=== PATIENT | female | born 1930 | race Caucasian/White ===

== ENCOUNTER 2017-01-09 05:06 | Emergency (ER) | payer OTHER ==
[~2017-01-09] VITALS: Ht 149.9 cm; Wt 65.8 kg
[2017-01-09 05:06] VITALS: BP 158/73; PULSE 67; RESP 15; TEMP 97.2; O2SAT 96
[~2017-01-09 05:06] MED LIST: ACET-1010 PO; ALBU8.5H8 INH; ALEN10TA6 PO; ARIP5TAB10 PO; BISA5TAB10 PO; BUPR100T13 PO; CLOP75TA2 PO; CYAN100067 PO; DOCU-144 PO; DONE10TA44 PO; GUAI600T PO; LIP10 PO; MEMA10TA12 PO; MULT-1117 PO; NIFE-2 PO; ONDA4TAB5 PO; POLY17PO4 PO; TRAZ-123 PO; VENL75CA PO
--- NOTE | 2017-01-09 05:06 | NUR ---
ER at bedside examining patient.
--- NOTE | 2017-01-09 05:06 | NUR ---
Placed in room 02 . Placed on qual field manager, blood pressure machine and pulse oximeter. To gown for exam. Side rails up. Report given to ROBERTO Middleton.
--- NOTE | 2017-01-09 05:06 | NUR ---
Pt had a mechanical fall while ambulating to the bathroom. Pt reports R knee and shoulder pain 04/20. Pt has a hematome on the R side of the forehead with some small abrasions of the nose. Denies KO. AAOX4. Will continue to monitor. No other injuries or complaints mentioned/noted. No distress noted.
[2017-01-09] MEDS ORDERED: BACITRACIN 1 GM OINT TP ONE (05:15)
[2017-01-09] MEDS ORDERED: IBUPROFEN 600 MG TABLET PO ONE (05:15)
--- NOTE | 2017-01-09 05:24 | NUR ---
Patient medication records indicate patient takes MD Cyrus notified and now aware.
[2017-01-09 05:57] VITALS: BP 158/73; PULSE 67; RESP 15; TEMP 97.2; O2SAT 96
--- NOTE | 2017-01-09 05:57 | NUR ---
Called Allan Templeton. Spoke to Lauren and gave report.
--- NOTE | 2017-01-09 05:57 | NUR ---
Patient given written and verbal discharge instructions and verbalizes understanding. ER MD discussed with patient the results and treatment provided. Patient in stable condition. ID arm band removed. Rx of ibuprofen given. Patient educated on pain management and to follow up with PMD. Pain Scale 2/10. Opportunity for questions provided and answered.
== END 2017-01-09 05:57 | disposition home or self-care (01) ==
LOC: SED 05:06
DX: S00.83XA Contusion of other part of head, initial encounter (principal); S80.01XA Contusion of right knee, initial encounter; J45.909 Unspecified asthma, uncomplicated; F03.90 Unspecified dementia, unspecified severity, without behavioral disturbance, psychotic disturbance, mood disturbance, and anxiety; E11.9 Type 2 diabetes mellitus without complications; Z88.5 Allergy status to narcotic agent; Z91.011 Allergy to milk products; Z96.651 Presence of right artificial knee joint; Z88.1 Allergy status to other antibiotic agents; W01.0XXA Fall on same level from slipping, tripping and stumbling without subsequent striking against object, initial encounter; Y93.89 Activity, other specified; Y99.8 Other external cause status; Y92.89 Other specified places as the place of occurrence of the external cause
CPT/HCPCS: 73560-TC; 99284

== ENCOUNTER 2017-07-25 17:45 | Inpatient (IN) | payer OTHER ==
[~2017-07-25] VITALS: Ht 142.2 cm; Wt 56.7 kg
[2017-07-25 17:45] VITALS: BP_SYST 129
[~2017-07-25 17:45] MED LIST changes: -NIFE-2 PO
[2017-07-25] MEDS ORDERED: NS 500 ML IV ONE (18:15)
[2017-07-25 18:36] LABS: BASOPHILS % (AUTO) 0.1 % (0.0-2.0); EOSINOPHILS # (AUTO) 0.1 K/uL (0.0-0.4); EOSINOPHILS % (AUTO) 1.8 % (0.0-4.0); HEMOGLOBIN 13.6 g/dL (12.0-16.0); LYMPHOCYTES # (AUTO) 1.1 K/uL (1.0-5.5); LYMPHOCYTES % (AUTO) 20.4 % (20.5-51.5); MEAN CORPUSCULAR HEMOGLOBIN 29 pg (27-31); MEAN CORPUSCULAR HGB CONC 33 % (32-36); MEAN CORPUSCULAR VOLUME 86 fL (79.0-98.0); MONOCYTES # (AUTO) 0.7 K/uL (0.0-1.0); MONOCYTES % (AUTO) 13.1 % (1.7-9.3); NEUTROPHILS # (AUTO) 3.4 K/uL (1.8-7.7); NEUTROPHILS % (AUTO) 64.6 % (40.0-70.0); PLATELET COUNT (AUTO) 200 K/uL (130-430); RED BLOOD CELL COUNT(AUTO) 4.78 MIL/uL (4.2-6.2); RED CELL DISTRIBUTION WIDTH 13.8 % (9.0-15.0); WHITE BLOOD COUNT (AUTO) 5.3 K/uL (4.8-10.8)
[2017-07-25 18:39] LABS: PROTHROMBIN TIME 10.9 SECS (9.5-12.5)
[2017-07-25 18:48] LABS: ANION GAP 10 (5-15); CALCIUM 8.8 mg/dL (8.4-11.0); CHLORIDE 98 mmol/L (98-107); CREATININE 1.45 mg/dL (0.55-1.30); POTASSIUM 4.4 mmol/L (3.5-5.1); SODIUM SERUM 131 mmol/L (136-145); UREA NITROGEN, BLOOD 12 mg/dL (8-21)
[2017-07-25 18:51] LABS: GLUCOSE 417 mg/dL (70-99)
[2017-07-25 18:53] LABS: ALANINE AMINOTRANSFERASE 29 U/L (12-78); ASPARTATE AMINOTRANSFERASE 21 U/L (10-37); TOTAL BILIRUBIN 0.6 mg/dL (0.0-1.0)
[2017-07-25 19:02] LABS: BILIRUBIN,URINE NEGATIVE (NEGATIVE); BLOOD, URINE NEGATIVE (NEGATIVE); CLARITY/URINE SL HAZY (CLEAR); COLOR,URINE YELLOW (YELLOW); GLUCOSE,URINE 3+ (NEGATIVE); KETONES,URINE TRACE (NEGATIVE); LEUKOCYTE ESTERASE ,URINE NEGATIVE (NEGATIVE); NITRITE, URINE NEGATIVE (NEGATIVE); PROTEIN URINE NEGATIVE (NEGATIVE)
[2017-07-25 19:24] LABS: BACTERIA,URINE FEW /HPF (None Seen); RBC,URINE NONE SEEN /HPF (0-3)
[2017-07-25 19:25] LABS: MUCUS,URINE None Seen /LPF (None Seen)
[2017-07-25] MEDS ORDERED: MEMA28CA PO (19:53)
[2017-07-25] MEDS ORDERED: LEVOFLOXACIN 500 MG/D5W 100 ML IV ONE (20:15)
[2017-07-25] MEDS ORDERED: INSULIN REGULAR, HUMAN 10 UNITS/0.1 ML INJ IVP ONE (20:15)
[2017-07-25] MEDS ORDERED: LEVOFLOXACIN 500 MG/D5W 100 ML IV SCH (20:30)
[2017-07-25 20:38] LABS: ACETAMINOPHEN < 1 ug/mL (1-30)
[2017-07-25 21:14] VITALS: BP_SYST 110
[2017-07-25] MEDS: NACL 0.9% 1,000 ML IV SCH (22:29)
[2017-07-25 23:51] VITALS: BP_SYST 108
[2017-07-26 04:59] VITALS: BP_SYST 104
[2017-07-26] MEDS: INSULIN REGULAR, HUMAN 100 UNITS/ML, 10 ML VIAL (novoLIN R) SUBCUT PRN ×2 (06:32→13:01)
[2017-07-26] MEDS: NACL 0.9% 1,000 ML IV SCH (06:42)
[2017-07-26 07:51] LABS: BASOPHILS % (AUTO) 0.2 % (0.0-2.0); EOSINOPHILS # (AUTO) 0.1 K/uL (0.0-0.4); EOSINOPHILS % (AUTO) 2.2 % (0.0-4.0); HEMATOCRIT 35.8 % (36-48); HEMOGLOBIN 11.6 g/dL (12.0-16.0); LYMPHOCYTES # (AUTO) 1.2 K/uL (1.0-5.5); LYMPHOCYTES % (AUTO) 31.1 % (20.5-51.5); MEAN CORPUSCULAR HEMOGLOBIN 28 pg (27-31); MEAN CORPUSCULAR HGB CONC 33 % (32-36); MEAN CORPUSCULAR VOLUME 87 fL (79.0-98.0); MONOCYTES # (AUTO) 0.6 K/uL (0.0-1.0); NEUTROPHILS # (AUTO) 1.9 K/uL (1.8-7.7); NEUTROPHILS % (AUTO) 51.5 % (40.0-70.0); PLATELET COUNT (AUTO) 161 K/uL (130-430); RED BLOOD CELL COUNT(AUTO) 4.09 MIL/uL (4.2-6.2); RED CELL DISTRIBUTION WIDTH 13.6 % (9.0-15.0); WHITE BLOOD COUNT (AUTO) 3.8 K/uL (4.8-10.8)
[2017-07-26 08:21] LABS: ALANINE AMINOTRANSFERASE 22 U/L (12-78); ALBUMIN 2.9 g/dL (3.4-4.8); ANION GAP 11 (5-15); ASPARTATE AMINOTRANSFERASE 18 U/L (10-37); CALCIUM 7.7 mg/dL (8.4-11.0); CHLORIDE 105 mmol/L (98-107); CREATININE 1.07 mg/dL (0.55-1.30); GLUCOSE 218 mg/dL (70-99); POTASSIUM 4.2 mmol/L (3.5-5.1); SODIUM SERUM 138 mmol/L (136-145); TOTAL BILIRUBIN 0.4 mg/dL (0.0-1.0); UREA NITROGEN, BLOOD 9 mg/dL (8-21)
[2017-07-26 08:29] LABS: BARBITURATE, URINE NEGATIVE (NEG <=200); BENZODIAZEPINE, URINE NEGATIVE (NEG <=150); CANNABINOID, URINE NEGATIVE (NEG <=50); COCAINE, URINE NEGATIVE (NEG <=150); METHAMPHETAMINES SCREEN,URINE NEGATIVE (NEG <=500); OPIATE, URINE NEGATIVE (NEG <=100); PHENCYCLIDINE SCREEN,URINE NEGATIVE (NEG <=25); UR TRICYCLIC ANTIDEPRESSANTS NEGATIVE (NEG <=300); URINE AMPHETAMINE NEGATIVE (NEG <=500); URINE METHADONE NEGATIVE (NEG <=200); URINE OXYCODONE SCREEN NEGATIVE (NEG <=100); URINE PROPOXYPHENE SCREEN NEGATIVE (NEG <=300)
[2017-07-26 08:30] VITALS: BP_SYST 109
[2017-07-26] MEDS ORDERED: LISINOPRIL 10 MG TABLET (PRINIVIL) PO SCH (09:00)
[2017-07-26 11:53] VITALS: BP_SYST 112
[2017-07-26 14:23] VITALS: BP_SYST 112
[2017-07-26] MEDS ORDERED: INSULIN REGULAR, HUMAN 100 UNITS/ML, 10 ML VIAL (novoLIN R) SUBCUT PRN (14:45)
[2017-07-26 16:03] VITALS: BP_SYST 106
== END 2017-07-26 15:50 | DRG 682 ==
LOC: SED 17:45 → SMU 20:39
DX: N17.9 Acute kidney failure, unspecified (principal); G93.41 Metabolic encephalopathy; N39.0 Urinary tract infection, site not specified; E11.65 Type 2 diabetes mellitus with hyperglycemia; G30.9 Alzheimer's disease, unspecified; F02.80 Dementia in other diseases classified elsewhere, unspecified severity, without behavioral disturbance, psychotic disturbance, mood disturbance, and anxiety; Z66 Do not resuscitate; W19.XXXA Unspecified fall, initial encounter; E78.00 Pure hypercholesterolemia, unspecified; I10 Essential (primary) hypertension; F32.9 Major depressive disorder, single episode, unspecified; R14.0 Abdominal distension (gaseous); E88.1 Lipodystrophy, not elsewhere classified; Z88.5 Allergy status to narcotic agent; Z88.8 Allergy status to other drugs, medicaments and biological substances; Z79.4 Long term (current) use of insulin
CPT/HCPCS: 36415; 70450-TC; 71010; 72125-TC; 80053; 80307; 81000-TC; 82962; 83036; 83605; 84484; 85025; 85610-TC; 85730-TC; 87040-TC; 87081; 87086; 93005; 96361; 96365; 96375; 99285; G0480; G0481; J1815; J1956; J7030; J7040

== ENCOUNTER 2018-01-23 17:39 | Emergency (ER) | payer OTHER ==
[~2018-01-23] VITALS: Ht 152.4 cm; Wt 52.2 kg
[~2018-01-23 17:39] MED LIST changes: -MEMA10TA12 PO; +MEMA28CA PO
[2018-01-23 17:42] VITALS: BP_SYST 122
--- NOTE | 2018-01-23 17:42 | NUR ---
Patient to ER bed 02 to gown for evaluation. Side rails up. Report given to ROBERTO Gaona
--- NOTE | 2018-01-23 17:43 | NUR ---
Pt AAOx4 BIB BLS s/p mechanical ground level fall at [facility] x 3 days ago. Per EMS, x-ray was done and showed hip fracture. PMD Ramirez recommended for pt to go to ER. Pt denies pain omar. +CMS to bilateral legs. No pain upon palpation to bilateral hips. Pt breathing even and unlabored. No other injuries/complaints per pt/noted. Will continue to monitor.
--- NOTE | 2018-01-23 17:47 | NUR ---
ER Dr. Garcia at bedside examining patient.
--- NOTE | 2018-01-23 18:00 | NUR ---
Per staff at [facility], no radiology report is available for analysis. WOJCIECH Medrano got a verbal report from [facility] that there was an abnormality to R hip and recommended CT to r/o fracture. [facility] [place] [facility].
[2018-01-23 18:55] LABS: BASOPHILS % (AUTO) 0.5 % (0.0-2.0); EOSINOPHILS % (AUTO) 0.8 % (0.0-4.0); HEMATOCRIT 38.4 % (36-48); HEMOGLOBIN 12.6 g/dL (12.0-16.0); LYMPHOCYTES # (AUTO) 0.8 K/uL (1.0-5.5); LYMPHOCYTES % (AUTO) 25.6 % (20.5-51.5); MEAN CORPUSCULAR HEMOGLOBIN 29 pg (27-31); MEAN CORPUSCULAR HGB CONC 33 % (32-36); MEAN CORPUSCULAR VOLUME 88 fL (79.0-98.0); MONOCYTES # (AUTO) 0.4 K/uL (0.0-1.0); MONOCYTES % (AUTO) 14.9 % (1.7-9.3); NEUTROPHILS # (AUTO) 1.8 K/uL (1.8-7.7); NEUTROPHILS % (AUTO) 58.2 % (40.0-70.0); PLATELET COUNT (AUTO) 148 K/uL (130-430); RED BLOOD CELL COUNT(AUTO) 4.38 MIL/uL (4.2-6.2); RED CELL DISTRIBUTION WIDTH 14.4 % (9.0-15.0)
--- NOTE | 2018-01-23 18:59 | NUR ---
Pt assisted with bedpan. Pt tolerated well.
[2018-01-23 19:10] LABS: ANION GAP 8 (5-15); CALCIUM 8.8 mg/dL (8.4-11.0); CHLORIDE 96 mmol/L (98-107); CREATININE 1.26 mg/dL (0.55-1.30); GLUCOSE 221 mg/dL (70-99); POTASSIUM 4.2 mmol/L (3.5-5.1); SODIUM SERUM 129 mmol/L (136-145); UREA NITROGEN, BLOOD 15 mg/dL (8-21)
[2018-01-23 19:12] LABS: PROTHROMBIN TIME 10.3 SECS (9.5-12.5)
[2018-01-23 19:15] LABS: ALANINE AMINOTRANSFERASE 45 U/L (12-78); ALBUMIN 3.8 g/dL (3.4-4.8); ASPARTATE AMINOTRANSFERASE 89 U/L (10-37); TOTAL BILIRUBIN 0.4 mg/dL (0.0-1.0)
--- NOTE | 2018-01-23 19:16 | NUR ---
Radiology at bedside
--- NOTE | 2018-01-23 19:19 | NUR ---
Patient sitting in bed, daughter at bedside. No acute distress noted. Patient awake and alert, vital signs stable. Will continue to monitor.
--- NOTE | 2018-01-23 19:28 | NUR ---
# 22 gauge angiocath placed to L FA. Use of asceptic technique. Opsite placed over site. Blood return noted. Flushed with 10 cc of normal saline. No evidence of infiltration noted. Patient tolerated well.
[2018-01-23] MEDS ORDERED: LOPE2CAP PO (19:42)
[2018-01-23] MEDS ORDERED: TUM500 PO (19:42)
[2018-01-23] MEDS ORDERED: ALEN10TA6 PO (19:42)
[2018-01-23] MEDS ORDERED: GUAI100S14 PO (19:42)
[2018-01-23] MEDS ORDERED: SITA100T7 PO (19:42)
[2018-01-23] MEDS ORDERED: VITD2000 PO (19:42)
[2018-01-23] MEDS ORDERED: ACET167L15 PO (19:42)
[2018-01-23] MEDS ORDERED: DOCU-144 PO (19:42)
[2018-01-23] MEDS ORDERED: ARTT OP (19:42)
[2018-01-23] MEDS ORDERED: GLIP-201 PO (19:42)
--- NOTE | 2018-01-23 19:42 | NUR ---
Care endorsed to Blanca MEJIA
--- NOTE | 2018-01-23 19:42 | NUR ---
Medication reconciliation completed with information provided by Allan Templeton. Any prior medication reconciliation on file was reviewed and corrected.
[2018-01-23 20:43] VITALS: BP_SYST 122
--- NOTE | 2018-01-23 20:43 | NUR ---
Patient given written and verbal discharge instructions and verbalizes understanding. ER MD SAEED discussed with patient the results and treatment provided. Patient in stable condition. ID arm band removed. IV catheter removed intact and dressing applied, no active bleeding. NO Rx given. Patient educated on pain management and to follow up with PMD. Pain Scale 0/10. Opportunity for questions provided and answered. Medication side effect fact sheet provided.
== END 2018-01-23 20:43 | disposition home or self-care (01) ==
LOC: SED 17:39
DX: S70.02XA Contusion of left hip, initial encounter (principal); S70.01XA Contusion of right hip, initial encounter; E11.9 Type 2 diabetes mellitus without complications; J45.909 Unspecified asthma, uncomplicated; F03.90 Unspecified dementia, unspecified severity, without behavioral disturbance, psychotic disturbance, mood disturbance, and anxiety; Z79.899 Other long term (current) drug therapy; Z88.5 Allergy status to narcotic agent; Z88.6 Allergy status to analgesic agent; Z88.1 Allergy status to other antibiotic agents; Z91.011 Allergy to milk products; W18.30XA Fall on same level, unspecified, initial encounter; Y93.89 Activity, other specified; Y92.830 Public park as the place of occurrence of the external cause; Y99.8 Other external cause status
CPT/HCPCS: 36415; 73521; 80053; 84484; 85025; 85610-TC; 93005; 99285

== ENCOUNTER 2018-11-03 20:56 | Emergency (ER) | payer OTHER ==
[~2018-11-03] VITALS: Ht 152.4 cm; Wt 54.4 kg
[~2018-11-03 20:56] MED LIST changes: -ACET-1010 PO; +ACET-2634 PO; +ACET167L15 PO; +ARTT OP; +CYAN100010 PO; -CYAN100067 PO; +GLIP-201 PO; +GUAI100S14 PO; -GUAI600T PO; +GUAI600T45 PO; +LOPE2CAP PO; +SITA100T11 PO; +TUM500 PO; +VITD2000 PO
[2018-11-03 21:00] VITALS: BP_SYST 141
[2018-11-03] MEDS ORDERED: TRAM1TAB33 PO (21:18)
[2018-11-03] MEDS ORDERED: GUAI100S14 PO (21:18)
[2018-11-03] MEDS ORDERED: CARB1TAB10 PO (21:18)
[2018-11-03 22:15] LABS: ANION GAP 8 (5-15); CALCIUM 8.1 mg/dL (8.4-11.0); CHLORIDE 101 mmol/L (98-107); CREATININE 1.17 mg/dL (0.55-1.30); GLUCOSE 245 mg/dL (70-99); POTASSIUM 4.7 mmol/L (3.5-5.1); SODIUM SERUM 136 mmol/L (136-145); UREA NITROGEN, BLOOD 13 mg/dL (8-21)
[2018-11-03 22:30] LABS: ALANINE AMINOTRANSFERASE 21 U/L (12-78); ALBUMIN 3.4 g/dL (3.4-4.8); ASPARTATE AMINOTRANSFERASE 21 U/L (10-37); LIPASE 116 U/L (73-393); THYROID STIMULATING HORMONE 3.08 uIu/mL (0.36-3.74); TOTAL BILIRUBIN 0.7 mg/dL (0.0-1.0)
[2018-11-03 22:36] LABS: BASOPHILS % (AUTO) 0.2 % (0.0-2.0); EOSINOPHILS # (AUTO) 0.1 K/uL (0.0-0.4); EOSINOPHILS % (AUTO) 1.4 % (0.0-4.0); HEMATOCRIT 41.5 % (36-48); HEMOGLOBIN 13.8 g/dL (12.0-16.0); LYMPHOCYTES # (AUTO) 0.2 K/uL (1.0-5.5); LYMPHOCYTES % (AUTO) 3.1 % (20.5-51.5); MEAN CORPUSCULAR HEMOGLOBIN 29 pg (27-31); MEAN CORPUSCULAR HGB CONC 33 % (32-36); MEAN CORPUSCULAR VOLUME 86 fL (79.0-98.0); MONOCYTES # (AUTO) 0.2 K/uL (0.0-1.0); MONOCYTES % (AUTO) 3.7 % (1.7-9.3); NEUTROPHILS % (AUTO) 91.6 % (40.0-70.0); PLATELET COUNT (AUTO) 176 K/uL (130-430); RED CELL DISTRIBUTION WIDTH 13.6 % (9.0-15.0); WHITE BLOOD COUNT (AUTO) 6.5 K/uL (4.8-10.8)
[2018-11-03 23:16] LABS: BILIRUBIN,URINE NEGATIVE (NEGATIVE); CLARITY/URINE CLEAR (CLEAR); COLOR,URINE YELLOW (YELLOW); GLUCOSE,URINE 2+ (NEGATIVE); KETONES,URINE TRACE (NEGATIVE); LEUKOCYTE ESTERASE ,URINE NEGATIVE (NEGATIVE); NITRITE, URINE NEGATIVE (NEGATIVE); PH,URINE 7.5 (5.0-8.0); PROTEIN URINE NEGATIVE (NEGATIVE)
[2018-11-03 23:25] LABS: BLOOD, URINE TRACE (NEGATIVE)
[2018-11-03 23:46] LABS: BACTERIA,URINE FEW /HPF (None Seen); WBC,URINE 0-3 /HPF (0-3)
[2018-11-04 00:36] VITALS: BP_SYST 141
== END 2018-11-04 00:30 | disposition home or self-care (01) ==
LOC: SED 20:56
DX: R53.1 Weakness (principal); J45.909 Unspecified asthma, uncomplicated; F03.90 Unspecified dementia, unspecified severity, without behavioral disturbance, psychotic disturbance, mood disturbance, and anxiety; F41.9 Anxiety disorder, unspecified; R03.0 Elevated blood-pressure reading, without diagnosis of hypertension; Z88.1 Allergy status to other antibiotic agents; Z88.5 Allergy status to narcotic agent; Z91.018 Allergy to other foods; Z88.8 Allergy status to other drugs, medicaments and biological substances; Z79.899 Other long term (current) drug therapy
CPT/HCPCS: 36415; 71045; 80053; 81000-TC; 83690-TC; 84443-TC; 84484; 85025; 93005; 99284

== ENCOUNTER 2018-12-05 21:56 | Inpatient (IN) | payer OTHER ==
[~2018-12-05] VITALS: Ht 142.2 cm; Wt 58.5 kg
[~2018-12-05 21:56] MED LIST changes: -ACET-2634 PO; +CARB1TAB10 PO; -DONE10TA44 PO; -GUAI600T45 PO; -MULT-1117 PO; -ONDA4TAB5 PO; +TRAM-350 PO; -TRAZ-123 PO; +TRAZ-218 PO
[2018-12-05 22:00] VITALS: BP_SYST 155
[2018-12-05] MEDS ORDERED: NACL 0.9% 1,000 ML IV ONE (22:02)
[2018-12-05] MEDS ORDERED: MORPHINE 4 MG/ML INJ. SYRINGE IVP ONE (22:15)
[2018-12-05] MEDS ORDERED: ONDANSETRON HCL 4 MG/2 ML VIAL IVP ONE (22:15)
[2018-12-05 22:50] LABS: EOSINOPHILS # (AUTO) 0.1 K/uL (0.0-0.4); HEMOGLOBIN 12.3 g/dL (12.0-16.0); RED CELL DISTRIBUTION WIDTH 13.5 % (9.0-15.0)
[2018-12-05 22:56] LABS: BASOPHILS % (AUTO) 0.5 % (0.0-2.0); HEMATOCRIT 37.9 % (36-48); LYMPHOCYTES # (AUTO) 0.7 K/uL (1.0-5.5); LYMPHOCYTES % (AUTO) 14.4 % (20.5-51.5); MEAN CORPUSCULAR HEMOGLOBIN 29 pg (27-31); MEAN CORPUSCULAR HGB CONC 32 % (32-36); MEAN CORPUSCULAR VOLUME 89 fL (79.0-98.0); MONOCYTES # (AUTO) 0.4 K/uL (0.0-1.0); MONOCYTES % (AUTO) 8.1 % (1.7-9.3); NEUTROPHILS # (AUTO) 3.6 K/uL (1.8-7.7); PLATELET COUNT (AUTO) 214 K/uL (130-430); RED BLOOD CELL COUNT(AUTO) 4.24 MIL/uL (4.2-6.2); WHITE BLOOD COUNT (AUTO) 4.8 K/uL (4.8-10.8)
[2018-12-05] MEDS ORDERED: PROC5TAB12 PO (22:57)
[2018-12-05] MEDS ORDERED: ACET-73 PO (22:57)
[2018-12-05 23:01] LABS: PROTHROMBIN TIME 10.6 SECS (9.5-12.5)
[2018-12-05 23:10] LABS: ALANINE AMINOTRANSFERASE 15 U/L (12-78); ALBUMIN 3.7 g/dL (3.4-4.8); AMYLASE 51 U/L (0-100); ANION GAP 8 (5-15); ASPARTATE AMINOTRANSFERASE 19 U/L (10-37); CALCIUM 8.6 mg/dL (8.4-11.0); CHLORIDE 101 mmol/L (98-107); CREATININE 1.37 mg/dL (0.55-1.30); GLUCOSE 267 mg/dL (70-99); LIPASE 139 U/L (73-393); POTASSIUM 4.5 mmol/L (3.5-5.1); SODIUM SERUM 136 mmol/L (136-145); TOTAL BILIRUBIN 0.6 mg/dL (0.0-1.0); UREA NITROGEN, BLOOD 12 mg/dL (8-21)
[2018-12-05 23:30] LABS: BILIRUBIN,URINE NEGATIVE (NEGATIVE); BLOOD, URINE NEGATIVE (NEGATIVE); CLARITY/URINE CLEAR (CLEAR); COLOR,URINE YELLOW (YELLOW); GLUCOSE,URINE TRACE (NEGATIVE); KETONES,URINE TRACE (NEGATIVE); LEUKOCYTE ESTERASE ,URINE NEGATIVE (NEGATIVE); NITRITE, URINE NEGATIVE (NEGATIVE); PH,URINE 6.5 (5.0-8.0); PROTEIN URINE NEGATIVE (NEGATIVE)
[2018-12-05] MEDS ORDERED: MORPHINE 4 MG/ML INJ. SYRINGE IVP PRN (23:45)
[2018-12-06] VITALS (7 sets, daily range): BP systolic 120–189
[2018-12-06] MEDS ORDERED: LOPERAMIDE HCL 2 MG CAPSULE PO PRN (05:15)
[2018-12-06] MEDS ORDERED: hydrALAZINE HCL 25 MG TABLET PO PRN (05:30)
[2018-12-06] MEDS ORDERED: ONDANSETRON HCL 4 MG/2 ML VIAL IVP PRN (05:30)
[2018-12-06] MEDS ORDERED: ALBUTEROL SULFATE 0.083% 2.5 MG/3 ML VIAL.NEB INH PRN (05:30)
[2018-12-06] MEDS ORDERED: MORPHINE 4 MG/ML INJ. SYRINGE IVP PRN (05:30)
[2018-12-06] MEDS: INSULIN REGULAR, HUMAN 100 UNITS/ML, 10 ML VIAL (humuLIN R) SUBCUT PRN ×3 (06:08→17:35)
[2018-12-06 07:05] LABS: BASOPHILS % (AUTO) 0.4 % (0.0-2.0); EOSINOPHILS # (AUTO) 0.1 K/uL (0.0-0.4); EOSINOPHILS % (AUTO) 1.4 % (0.0-4.0); HEMATOCRIT 39.8 % (36-48); HEMOGLOBIN 12.7 g/dL (12.0-16.0); LYMPHOCYTES # (AUTO) 0.9 K/uL (1.0-5.5); LYMPHOCYTES % (AUTO) 13.6 % (20.5-51.5); MEAN CORPUSCULAR HEMOGLOBIN 29 pg (27-31); MEAN CORPUSCULAR HGB CONC 32 % (32-36); MEAN CORPUSCULAR VOLUME 90 fL (79.0-98.0); MONOCYTES # (AUTO) 0.6 K/uL (0.0-1.0); MONOCYTES % (AUTO) 9.2 % (1.7-9.3); NEUTROPHILS # (AUTO) 4.8 K/uL (1.8-7.7); NEUTROPHILS % (AUTO) 75.4 % (40.0-70.0); PLATELET COUNT (AUTO) 177 K/uL (130-430); RED BLOOD CELL COUNT(AUTO) 4.42 MIL/uL (4.2-6.2); RED CELL DISTRIBUTION WIDTH 13.9 % (9.0-15.0); WHITE BLOOD COUNT (AUTO) 6.4 K/uL (4.8-10.8)
[2018-12-06 07:08] LABS: ANION GAP 11 (5-15); CALCIUM 8.5 mg/dL (8.4-11.0); CHLORIDE 104 mmol/L (98-107); CREATININE 1.18 mg/dL (0.55-1.30); GLUCOSE 230 mg/dL (70-99); POTASSIUM 4.8 mmol/L (3.5-5.1); SODIUM SERUM 139 mmol/L (136-145); UREA NITROGEN, BLOOD 11 mg/dL (8-21)
[2018-12-06 07:19] LABS: ALANINE AMINOTRANSFERASE 16 U/L (12-78); ALBUMIN 3.5 g/dL (3.4-4.8); ASPARTATE AMINOTRANSFERASE 20 U/L (10-37); TOTAL BILIRUBIN 0.5 mg/dL (0.0-1.0)
[2018-12-06] MEDS: Effexor XR 37.5 MG PO SCH (08:49)
[2018-12-06] MEDS: PANTOPRAZOLE GRANULES PACKET 40 MG GT SCH (08:49)
[2018-12-06] MEDS: buPROPion HCL 100 MG TABLET PO SCH (08:49)
[2018-12-06] MEDS: POLYETHYLENE GLYCOL 3350, 17 GM/ POWD.PACK PO SCH (08:49)
[2018-12-06] MEDS: CYANOCOBALAMIN 1000 mCg TABLET PO SCH (08:49)
[2018-12-06] MEDS: cloNIDine HCL 0.2 MG TABLET PO PRN (08:50)
[2018-12-06] MEDS: CARBIDOPA/LEVODOPA 25/100 MG TABLET PO SCH ×3 (08:50→21:08)
[2018-12-06] MEDS ORDERED: glipiZIDE XL 5 MG TAB ( GLUCOTROL XL) PO SCH (09:00)
[2018-12-06] MEDS ORDERED: CLOPIDOGREL BISULFATE 75 MG TABLET PO SCH (09:00)
[2018-12-06] MEDS: MORPHINE 4 MG/ML INJ. SYRINGE IVP PRN ×2 (10:04→17:40)
[2018-12-06] MEDS: ARIPiprazole 5 MG TAB PO SCH (11:49)
[2018-12-06] MEDS ORDERED: traZODone HCL 50 MG TABLET (DESYREL) PO SCH (21:00)
[2018-12-06] MEDS ORDERED: ATORVASTATIN 10 MG TABLET PO SCH (21:00)
[2018-12-06] MEDS: MEMANTINE HCL 5 MG TABLET PO SCH (21:08)
[2018-12-07] MEDS: INSULIN REGULAR, HUMAN 100 UNITS/ML, 10 ML VIAL (humuLIN R) SUBCUT PRN ×3 (05:50→16:50)
[2018-12-07 07:29] LABS: BASOPHILS % (AUTO) 0.2 % (0.0-2.0); EOSINOPHILS # (AUTO) 0.1 K/uL (0.0-0.4); EOSINOPHILS % (AUTO) 1.8 % (0.0-4.0); HEMATOCRIT 37.8 % (36-48); HEMOGLOBIN 12.4 g/dL (12.0-16.0); LYMPHOCYTES # (AUTO) 0.8 K/uL (1.0-5.5); LYMPHOCYTES % (AUTO) 10.4 % (20.5-51.5); MEAN CORPUSCULAR HEMOGLOBIN 29 pg (27-31); MEAN CORPUSCULAR HGB CONC 33 % (32-36); MEAN CORPUSCULAR VOLUME 89 fL (79.0-98.0); MONOCYTES # (AUTO) 0.6 K/uL (0.0-1.0); MONOCYTES % (AUTO) 8.5 % (1.7-9.3); NEUTROPHILS # (AUTO) 5.9 K/uL (1.8-7.7); NEUTROPHILS % (AUTO) 79.1 % (40.0-70.0); PLATELET COUNT (AUTO) 180 K/uL (130-430); RED BLOOD CELL COUNT(AUTO) 4.26 MIL/uL (4.2-6.2); RED CELL DISTRIBUTION WIDTH 13.9 % (9.0-15.0); WHITE BLOOD COUNT (AUTO) 7.4 K/uL (4.8-10.8)
[2018-12-07 07:42] LABS: ALANINE AMINOTRANSFERASE 11 U/L (12-78); ALBUMIN 3.1 g/dL (3.4-4.8); ANION GAP 9 (5-15); ASPARTATE AMINOTRANSFERASE 16 U/L (10-37); CALCIUM 8.4 mg/dL (8.4-11.0); CHLORIDE 100 mmol/L (98-107); CREATININE 0.98 mg/dL (0.55-1.30); GLUCOSE 225 mg/dL (70-99); POTASSIUM 4.6 mmol/L (3.5-5.1); SODIUM SERUM 135 mmol/L (136-145); TOTAL BILIRUBIN 0.7 mg/dL (0.0-1.0); UREA NITROGEN, BLOOD 9 mg/dL (8-21)
[2018-12-07] MEDS ORDERED: ACETAMINOPHEN 500 MG TABLET PO PRN (08:15)
[2018-12-07] MEDS ORDERED: PROCHLORPERAZINE MALEATE 5 MG TABLET PO PRN (08:15)
[2018-12-07] MEDS ORDERED: guaiFENesin 200 MG/10 ML UDC PO PRN (08:15)
[2018-12-07] MEDS ORDERED: DOCUSATE SODIUM 100 MG CAPSULE PO PRN (08:15)
[2018-12-07] MEDS ORDERED: CALCIUM CARBONATE 500 MG/ TAB.CHEW PO PRN (08:15)
[2018-12-07] MEDS: CYANOCOBALAMIN 1000 mCg TABLET PO SCH (08:51)
[2018-12-07] MEDS: CARBIDOPA/LEVODOPA 25/100 MG TABLET PO SCH ×2 (08:51→15:50)
[2018-12-07] MEDS: MEMANTINE HCL 5 MG TABLET PO SCH (08:51)
[2018-12-07] MEDS: PANTOPRAZOLE GRANULES PACKET 40 MG GT SCH (08:52)
[2018-12-07] MEDS: Effexor XR 37.5 MG PO SCH (08:52)
[2018-12-07] MEDS: POLYETHYLENE GLYCOL 3350, 17 GM/ POWD.PACK PO SCH (08:52)
[2018-12-07] MEDS: buPROPion HCL 100 MG TABLET PO SCH (09:04)
[2018-12-07] MEDS: cloNIDine HCL 0.2 MG TABLET PO PRN (09:07)
[2018-12-07 09:10] VITALS: BP_SYST 163
[2018-12-07] MEDS: MORPHINE 4 MG/ML INJ. SYRINGE IVP PRN (11:12)
[2018-12-07] MEDS: ARIPiprazole 5 MG TAB PO SCH (11:12)
[2018-12-07 12:44] VITALS: BP_SYST 126
[2018-12-07 16:22] VITALS: BP_SYST 126
[2018-12-07 16:40] VITALS: BP_SYST 93
[2018-12-08] MEDS ORDERED: CHOLECALCIFEROL (VITAMIN D3) 2,000 UNIT TABLET PO SCH (09:00)
[2018-12-12] MEDS ORDERED: ALENDRONATE SODIUM 10 MG TABLET (FOSAMAX) PO SCH (09:00)
== END 2018-12-07 18:05 | DRG 563 ==
LOC: SED 21:56 → SMU 23:40
PROVIDERS: ADMIT Internal Medicine; ATTEND Internal Medicine
DX: S42.291A Other displaced fracture of upper end of right humerus, initial encounter for closed fracture (principal); W18.30XA Fall on same level, unspecified, initial encounter; N28.9 Disorder of kidney and ureter, unspecified; I10 Essential (primary) hypertension; G20 Parkinson's disease; F02.80 Dementia in other diseases classified elsewhere, unspecified severity, without behavioral disturbance, psychotic disturbance, mood disturbance, and anxiety; E11.9 Type 2 diabetes mellitus without complications; J45.909 Unspecified asthma, uncomplicated; F32.9 Major depressive disorder, single episode, unspecified; E78.5 Hyperlipidemia, unspecified; Z66 Do not resuscitate; Z83.3 Family history of diabetes mellitus; Z88.1 Allergy status to other antibiotic agents; Z88.5 Allergy status to narcotic agent; Z91.018 Allergy to other foods; Z79.899 Other long term (current) drug therapy; Z79.84 Long term (current) use of oral hypoglycemic drugs; Z79.02 Long term (current) use of antithrombotics/antiplatelets; Y93.89 Activity, other specified; Y92.89 Other specified places as the place of occurrence of the external cause; Y99.8 Other external cause status
CPT/HCPCS: 36415; 71045; 73030; 73060-TC; 80053; 81003; 82150-TC; 82550-TC; 82962; 83690-TC; 84484; 85025; 85610-TC; 85730-TC; 87081; 96361; 96374; 96375; 97112-GP; 97163; 99285; J1815; J2270; J2405

== ENCOUNTER 2019-05-07 19:08 | Emergency (ER) | payer OTHER ==
[~2019-05-07] VITALS: Ht 147.3 cm; Wt 72.6 kg
[~2019-05-07 19:08] MED LIST changes: +ACET-73 PO; -ACET167L15 PO; -ALBU8.5H8 INH; -ARTT OP; -BISA5TAB10 PO; +PROC5TAB12 PO
--- NOTE | 2019-05-07 19:12 | NUR ---
Patient to ER bed 05 to gown for evaluation. Side rails up. Report given to Tawny MEJIA.
[2019-05-07 19:13] VITALS: BP_SYST 96
--- NOTE | 2019-05-07 19:16 | NUR ---
Pt BIB BLS from [facility] c/o 02/18 tailbone pain s/p fall. Pt was sitting in chair and fell back landing on her tail bone. Pt denies loss of consciousness. Pt is AAO x 3 and ambulatory. No other injuries/complaints per patient or noted.
--- NOTE | 2019-05-07 20:00 | NUR ---
ER Dr. Lantigua at bedside examining patient.
[2019-05-07 21:45] VITALS: BP_SYST 103
--- NOTE | 2019-05-07 21:45 | NUR ---
Patient given written and verbal discharge instructions and verbalizes understanding. ER MD discussed with patient the results and treatment provided. Patient in stable condition. ID arm band removed. No Rx given. Patient educated on pain management and to follow up with PMD. Pain Scale 0. Opportunity for questions provided and answered. Medication side effect fact sheet provided.
== END 2019-05-07 21:45 | disposition home or self-care (01) ==
LOC: SED 19:08
DX: S33.5XXA Sprain of ligaments of lumbar spine, initial encounter (principal); J44.9 Chronic obstructive pulmonary disease, unspecified; F03.90 Unspecified dementia, unspecified severity, without behavioral disturbance, psychotic disturbance, mood disturbance, and anxiety; E11.9 Type 2 diabetes mellitus without complications; Z88.1 Allergy status to other antibiotic agents; Z88.5 Allergy status to narcotic agent; Z91.011 Allergy to milk products; Z88.8 Allergy status to other drugs, medicaments and biological substances; Z79.899 Other long term (current) drug therapy; W01.0XXA Fall on same level from slipping, tripping and stumbling without subsequent striking against object, initial encounter; Y93.89 Activity, other specified; Y92.89 Other specified places as the place of occurrence of the external cause; Y99.8 Other external cause status
CPT/HCPCS: 72110; 99283